=== PATIENT | female | born 1975 | race Two or more races ===

== ENCOUNTER 2022-01-12 16:24 | Emergency (ER) | payer BC ==
[~2022-01-12] VITALS: Ht 167.6 cm; Wt 81.6 kg
[2022-01-12] MEDS ORDERED: IMITREX100 MG PO (17:04)
[2022-01-12] MEDS ORDERED: NASAL MIST126 ML (17:04)
[2022-01-12] MEDS ORDERED: ZYRTEC10 M3 PO (17:04)
[2022-01-12] MEDS ORDERED: DICLOFENAC SODI75 MG PO (17:55)
[2022-01-12] MEDS ORDERED: DUI500 PO (17:59)
== END 2022-01-12 18:12 | disposition home or self-care (01) ==
LOC: ER 16:24
DX: S93.402A Sprain of unspecified ligament of left ankle, initial encounter (principal); Y93.01 Activity, walking, marching and hiking; Y93.9 Activity, unspecified; Y92.830 Public park as the place of occurrence of the external cause; S92.312A Displaced fracture of first metatarsal bone, left foot, initial encounter for closed fracture